=== PATIENT | female | born 1960 | race Caucasian/White ===

== ENCOUNTER → 2023-10-11 10:50 | Outpatient (REF) | payer BC, SELFPAY | LOC: RAD 10:50 | PROVIDERS: ATTENDING PHYSICIAN Internal Medicine; FAMILY PHYSICIAN Family Medicine | DX: K44.9 Diaphragmatic hernia without obstruction or gangrene (principal) | CPT/HCPCS: 74246 ==

== ENCOUNTER → 2023-10-16 06:23 | Day surgery (SDC) | payer BC, SELFPAY | LOC: GI 06:23 | PROVIDERS: ATTENDING PHYSICIAN Internal Medicine | DX: R10.13 Epigastric pain (principal); K44.9 Diaphragmatic hernia without obstruction or gangrene; K25.9 Gastric ulcer, unspecified as acute or chronic, without hemorrhage or perforation; K29.50 Unspecified chronic gastritis without bleeding; Q89.9 Congenital malformation, unspecified | CPT/HCPCS: 43239; 88305; 88342 ==

== ENCOUNTER → 2023-12-24 18:11 | Outpatient (REF) | payer BC, SELFPAY | LOC: WDC 18:11 | PROVIDERS: ATTENDING PHYSICIAN Family Medicine | DX: Z12.31 Encounter for screening mammogram for malignant neoplasm of breast (principal) | CPT/HCPCS: 77063; 77067 ==

== ENCOUNTER 2024-08-11 16:23 | Emergency (ER) | payer BC, SELFPAY ==
[2024-08-11 16:30] VITALS: BP 145/92
--- NOTE | 2024-08-11 18:45 | ED.GENMED ---
History of Present Illness
General
Chief Complaint: Abdominal Symptoms
Source: patient
Exam Limitations: none
Time Seen by Provider: 08/11/24 18:26
Nursing documentation reviewed up to this point in time: agreed with
History of Present Illness
History of Present Illness:
Patient states she was evaluated in ED in [place] on Saturday after developing severe diarrhea. States she was given antinausea meds and IVF with relief of her symptoms. States today she noted numbness and tingling to her fingers and toes. SHe
called PCP to schedule a follow up visit but was advised to come to ED. Denies fever/chills. Eating and drinking. Reports feeling bloated. Brought self to ED for eval
Past History
Past History
ED Past Medical History: None and Other (Female, recent rash, hypertension, depression anxiety)
ED Past Surgical History: None
Social History
Tobacco: Non-smoker
Alcohol: Occasional
Drug: None
Personal:
Living: with family
Employment: Employed
Family History
Family History: Other (sister with non-Hodgkin's lymphoma, mother with coronary disease and diabetes, sister with diabetes.)
Review of Systems
Review of Systems
Allergies reviewed?: Yes
All Other Systems: ROS reviewed and negative except as documented in HPI and ROS
Constitutional: Reports no symptoms
EENT: Reports no symptoms
Respiratory: Reports no symptoms
Cardiac: Reports no symptoms
ABD/GI: Reports other (bloating)
: Reports no symptoms
Musculoskeletal: Reports no symptoms
Skin: Reports no symptoms
Neurological: Reports other (pins and needle sensation to hands and feet)
Psychiatric: Reports no symptoms
Phy Exam
General Physical Exam
General Presentation: well appearing and no apparent distress
General age: appears stated age
General Skin: warm and dry
General Habitus: normal
General Mental: alert
Cardiovascular Exam
Cardiovascular Exam: regular rate/rhythm and no edema
Pulmonary Exam
Pulmonary Exam: lungs clear and no respiratory distress
Gastrointestinal Exam
Gastrointestinal Exam: normal bowel sounds, non tender, soft, no organomegaly, no pulsatile mass, non distended and no cva tenderness
Musculoskeletal Exam
Musculoskeletal Exam: full ROM and neuro vasc intact
Skin Exam
Skin Exam: normal color, warm/dry and no rash
Psychiatric Exam
Psychiatric Exam: normal mood/affect
Course
Orders/Labs/Results
Orders:
Orders
08/11/24 19:22
Complete Blood Count/With Diff Urgent
Comprehensive Metabolic Panel Urgent
Lipase Urgent
08/11/24 19:52
0.9% Sodium Chloride 1000 ml [Nss] 1,000 ml IV BOLUS
08/11/24 19:53
Potassium Chloride Powder [Klor-Con] 20 meq PO NOW STA
08/11/24 21:16
Urinalysis Reflex To Culture Urgent
Date Specimen was Collected: 08/11/24
Time Specimen was Collected: 21:16
Abnormal Lab Results
08/11/24
19:22
Sodium 134 L mmol/L
(135-145)
Potassium 3.2 L mmol/L
(3.5-5.1)
Chloride 94 L mmol/L
(98-107)
Carbon Dioxide 34 H mmol/L
(22-30)
08/11/24 19:22
08/11/24 19:22
Vital Signs
Initial and Last Documented VS:
Initial Vital Signs
Temp Pulse Resp BP Pulse Ox
97.4 F 66 16 145/92 100
08/11/24 16:30 08/11/24 16:30 08/11/24 16:30 08/11/24 16:30 08/11/24 16:30
Last Documented Vital Signs
Temp Pulse Resp BP Pulse Ox
97.4 F 65 15 140/88 98
08/11/24 16:30 08/11/24 22:22 08/11/24 22:22 08/11/24 22:22 08/11/24 22:22
*Critical Care Note
Total Time (30-74mins, 75-104mins- exclusive of procedures): Not Applicable
Update Note
Update Note:
Labs reviewed. Na 130, K3.2 noted. Given IVF and [id number] po. Will continue KCL x 3 additional days. Patient reports improvement in symptoms. WIll dishcarge home. She was given instructions on s/s to return to ED and she is agreeable to plan.
ED Attending Note
-
Portions of this chart may have been created with voice recognition software.� Occasional wrong word or��sound alike� substitutions may have occurred due to the inherent limitations of voice recognition software.
Discharge Plan
Departure
Patient Disposition: Home (Routine Discharge)
Date of Disposition: 08/11/24
Time of Disposition: :18
Patient with high blood pressure during this ER visit?: No
Condition: Good
Covid-19: Not Applicable
Discharge Problem:
Dehydration
Instructions: Dehydration, Adult (DC)
Prescriptions:
New
potassium chloride 20 mEq packet
20 meq PO DAILY Qty: 3 0RF
No Action
amitriptyline 10 MG tablet
10 mg PO HS
levothyroxine 50 MCG tablet
50 mcg PO DAILY
propranolol 80 MG capsule,extended release 24 hr
160 mg PO DAILY
zolpidem 10 MG tablet
5 mg PO HS
Patient Comments:
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
hydroxychloroquine [Plaquenil] 200 MG tablet
400 mg PO DAILY
omeprazole 20 MG capsule,delayed release(DR/EC)
20 mg PO BID
hydrochlorothiazide 25 MG tablet
25 mg PO DAILY
Patient Comments:
patient cut these in half
cholecalciferol (vitamin D3) 1,000 UNITS tablet
1,000 units PO DAILY
multivitamin with folic acid [Tab-A-Louisa] 1 TABLET tablet
1 tab PO DAILY
venlafaxine [Effexor XR] 37.5 MG capsule,extended release 24hr
37.5 mg PO HS
Referrals:
Matteo Lee MD [Family Provider] - Call in 1-3 days for appt
Interventions
Interventions:
*Risk Screen - Suicide Last Done: 08/11/24 16:30
*General Assessment Last Done: 08/11/24 16:30
*Neglect/Abuse Screening Last Done: 08/11/24 16:30
*Nursing Disposition Last Done: 08/11/24 22:31
RK-Rjiexa-Sifnhnplgl Assessment Last Done: 08/11/24 18:45
Discharge Date and Time
Discharge Date/Time: 08/11/24 22:31
Print Language: SUDANESE
[2024-08-11 19:30] LABS: % Basophils 0.8 % (0-2); % Eosinophils 4.9 % (0-6); % Immature Granulocytes 0.2 % (0-0.5); % Lymphocytes 23.7 % (20.5-51.1); % Monocytes 9.1 % (1.7-9.3); % Neutrophils 61.3 % (42.2-75.2); Absolute Eosinophils 0.2 10^3/uL (0-0.7); Absolute Lymphocytes 1.2 10^3/uL (1.2-3.4); Absolute Monocytes 0.5 10^3/uL (0.1-0.6); Hematocrit 40.5 % (37.0-47.0); Mean Corp Hgb Conc. 34.6 g/dL (33.0-37.0); Mean Corpuscular Volume 83.9 fL (81.0-99.0); Mean Platelet Volume 9.3 fL (7.4-10.4); Nucleated Red Blood Cells % 0 %; Platelet Count 245 10^3/uL (130-400); Red Blood Cell Count 4.83 10^6/uL (4.20-5.40); Red Cell Dist. Width 12.6 % (11.5-14.5); White Blood Cell Count 4.9 10^3/uL (4.8-10.8)
[2024-08-11 19:43] LABS: ALT (SGPT) 22 U/L (0-35); AST (SGOT) 27 U/L (14-36); Albumin 4.2 g/dl (3.5-5.0); Alkaline Phosphatase 88 U/L (38-126); Blood Urea Nitrogen 14 mg/dl (7-17); Calcium 9.8 mg/dl (8.4-10.2); Carbon Dioxide 34 mmol/L (22-30); Chloride 94 mmol/L (98-107); Glucose 86 mg/dl (70-99); Lipase 48 U/L (23-300); Potassium 3.2 mmol/L (3.5-5.1); Sodium 134 mmol/L (135-145); Total Bilirubin 0.9 mg/dl (0.2-1.3); Total Protein 7.1 g/dl (6.3-8.2); eGFR > 60.00
[2024-08-11] MEDS: NSS 1000 IV (20:06)
[2024-08-11] MEDS: KLOR-CON 20 MEQ PO (20:19)
[2024-08-11 21:24] LABS: Urine Albumin Negative (Neg - Trace); Urine Bilirubin Negative (Negative); Urine Character Clear (Clear); Urine Color Yellow; Urine Glucose Negative (Negative); Urine Ketone Negative (Negative); Urine Leukocyte Negative (Negative); Urine Nitrite Negative (Negative); Urine Occult Blood Negative (Negative); Urine Specific Gravity 1.005 (<1.030); Urine Urobilinogen Negative (Neg - 1+)
[2024-08-11 22:22] VITALS: BP 140/88
== END 2024-08-11 22:31 | disposition home or self-care (01) ==
LOC: EMR 16:23
PROVIDERS: Nurse Practitioner; EMERGENCY PHYSICIAN Emergency Medicine; FAMILY PHYSICIAN Family Medicine
DX: E86.0 Dehydration (principal); I10 Essential (primary) hypertension
CPT/HCPCS: 96360; 99284; 80053; 81003; 83690; 85025

== ENCOUNTER → 2024-09-05 07:13 | Outpatient (REF) | payer BC, SELFPAY | LOC: RCS 07:13 | PROVIDERS: ATTENDING PHYSICIAN Family Medicine | DX: R01.1 Cardiac murmur, unspecified (principal) | CPT/HCPCS: 93306 ==

== ENCOUNTER → 2024-12-29 10:59 | Outpatient (REF) | payer BC, SELFPAY | LOC: WDC 10:59 | PROVIDERS: ATTENDING PHYSICIAN Family Medicine | DX: Z12.31 Encounter for screening mammogram for malignant neoplasm of breast (principal) | CPT/HCPCS: 77063; 77067 ==

== ENCOUNTER 2025-03-29 06:14 | Day surgery (SDC) | payer BC, SELFPAY ==
[2025-03-16 13:59] VITALS: BMI 37.3
[2025-03-16 14:23] LABS: Hematocrit 39.4 % (37.0-47.0); Hemoglobin 13.7 g/dL (12.0-16.0); Mean Corp Hgb Conc. 34.8 g/dL (33.0-37.0); Mean Corpuscular Volume 85.3 fL (81.0-99.0); Platelet Count 242 10^3/uL (130-400); Red Cell Dist. Width 12.6 % (11.5-14.5)
[2025-03-16 14:57] LABS: ALT (SGPT) 29 U/L (0-35); AST (SGOT) 28 U/L (14-36); Albumin 4.1 g/dl (3.5-5.0); Alkaline Phosphatase 77 U/L (38-126); Blood Urea Nitrogen 11 mg/dl (7-17); Calcium 9.5 mg/dl (8.4-10.2); Carbon Dioxide 33 mmol/L (22-30); Chloride 100 mmol/L (98-107); Estimated Creatinine Clearance 119 ml/min; Glucose 117 mg/dl (70-99); Potassium 3.6 mmol/L (3.5-5.1); Sodium 138 mmol/L (135-145); Total Protein 6.8 g/dl (6.3-8.2); eGFR > 60.00
[2025-03-17 08:39] LABS: Glycohemoglobin (HgbA1c) 5.6 % (4.0-5.6)
[2025-03-24 10:51] VITALS: BMI 37.3
[2025-03-29] VITALS (9 sets, daily range): BP systolic 134–183; BP diastolic 71–96; BMI 37.3
[2025-03-29] MEDS: TYLENOL 1000 MG PO ×2 (09:20→16:57)
[2025-03-29] MEDS: BACTROBAN NASAL 1 GRAM NASAL (09:20)
[2025-03-29] MEDS: NORMOSOL-R/PLASMALYTE-A 1000 IV (09:40)
[2025-03-29] MEDS: ZOFRAN 4 MG IV (15:34)
--- NOTE | 2025-03-29 15:42 | PTCARENOTE ---
Per Dr. Cong patel to give pacu dose of zofran .
== END 2025-03-29 17:20 | disposition home or self-care (01) ==
LOC: SDS 06:14
PROVIDERS: ATTENDING PHYSICIAN Orthopaedic Surgery Hand Surgery; FAMILY PHYSICIAN Family Medicine
DX: M19.012 Primary osteoarthritis, left shoulder (principal)
CPT/HCPCS: 23472; C1713; C1776; 73020; 80053; 83036; 85027; 87070